=== PATIENT | male | born 1945 | race Caucasian/White ===

== ENCOUNTER → 2017-07-13 | Outpatient (CLI) | payer OTHER | LOC: BHLMT 11:00 | PROVIDERS: ATTEND Internal Medicine Cardiovascular Disease | DX: R00.1 Bradycardia, unspecified (principal) | CPT/HCPCS: 93225-PO; 93226-PO ==

== ENCOUNTER → 2017-08-03 | Outpatient (CLI) | payer OTHER | LOC: BHLMT 11:30 | PROVIDERS: ATTEND Internal Medicine | DX: R00.1 Bradycardia, unspecified (principal) | CPT/HCPCS: 93017-PO ==

== ENCOUNTER → 2018-03-28 | Outpatient (CLI) | payer OTHER | LOC: CIMAGING 11:13 | PROVIDERS: ATTEND Internal Medicine | DX: M26.69 Other specified disorders of temporomandibular joint (principal); S03.00XA Dislocation of jaw, unspecified side, initial encounter; J32.9 Chronic sinusitis, unspecified | CPT/HCPCS: 70450-PO; 70486-PO ==